=== PATIENT | female | born 1960 | race African-American/Black ===

== ENCOUNTER 2019-01-01 10:22 | Emergency (ER) | payer MEDICAID, OTHER ==
[~2019-01-01] VITALS: Ht 167.6 cm; Wt 73.0 kg
[~2019-01-01 10:22] MED LIST: ALBUTEROL; COLACE; REMERON
[2019-01-01 12:55] VITALS: BP 133/79
== END 2019-01-01 13:27 | disposition home or self-care (01) ==
LOC: ER 10:49
DX: J96.10 Chronic respiratory failure, unspecified whether with hypoxia or hypercapnia (principal); I10 Essential (primary) hypertension; J95.03 Malfunction of tracheostomy stoma; Z88.0 Allergy status to penicillin
CPT/HCPCS: 71045; 99283